=== PATIENT | male | born 1990 | race Hispanic/Latino ===

== ENCOUNTER 2022-08-30 21:16 | Emergency (ER) | payer SELFPAY ==
[~2022-08-30] VITALS: Ht 172.7 cm; Wt 80.0 kg
[2022-08-30 21:30] VITALS: BP 122/80
[2022-08-30] MEDS ORDERED: DEPAKOTE500 MG PO ×2 (21:36→21:46)
[2022-08-30] MEDS ORDERED: TRAZODONE50 MG PO (21:37)
[2022-08-30] MEDS ORDERED: OLANZAPINE10 MG PO (21:38)
[2022-08-30] MEDS ORDERED: TRAZODONE100 MG PO (21:46)
[2022-08-30] MEDS ORDERED: OLANZAPINE20 MG PO (21:46)
[2022-08-30 22:02] VITALS: BP 122/80
== END 2022-08-30 22:03 | disposition home or self-care (01) | DRG 885 ==
LOC: ED 21:16
DX: F25.9 Schizoaffective disorder, unspecified (principal)